=== PATIENT | female | born 1995 | race Caucasian/White ===

== ENCOUNTER → 2020-02-13 14:26 | Outpatient (CLI) | payer OTHER, SELFPAY | PROVIDERS: Visit Provider Physician Assistant | DX: J02.9 Acute pharyngitis, unspecified (principal) | CPT/HCPCS: 87070 ==

== ENCOUNTER → 2020-03-03 16:22 | Outpatient (CLI) | payer OTHER, SELFPAY ==
--- NOTE | 2020-03-03 16:25 | DI.RAD.S_ITS ---
PROCEDURE: XR CHEST 2V INDICATIONS: cough TECHNIQUE: 2 views of the chest were acquired. COMPARISON: None. FINDINGS: Surgical changes and devices: None. Lungs and pleura: Lungs are clear. No pleural effusions or pneumothorax. Mediastinum: Mediastinal contours are normal. Heart size is normal. Bones and chest wall: No suspicious bony abnormalities. Soft tissues appear unremarkable. IMPRESSION: No acute cardiopulmonary disease. Dictated by: Markus Bailey [facility] Interpreted: Jordyn Dumont MD on 03/03/2020 at 17:07 Approved by: Jordyn Dumont M.D. on 03/03/2020 at 18:05
== END ==
PROVIDERS: PCP Registered Nurse; Referring Provider Physician Assistant; Visit Provider Physician Assistant
DX: R05 Cough (principal)
CPT/HCPCS: 71046

== ENCOUNTER → 2020-11-10 17:04 | Outpatient (CLI) | payer OTHER, SELFPAY ==
--- NOTE | 2020-11-10 17:06 | DI.RAD.S_ITS ---
PROCEDURE: XR LUMBAR SPINE 2-3V INDICATIONS: lower back pain TECHNIQUE: 3 views of the lumbar spine were acquired. COMPARISON: None. FINDINGS: Bones: 5 [id number] vertebrae are present. There is normal bony alignment. No vertebral body compression fractures. No suspicious bony lesions. The disc heights are well preserved. Soft tissues: Overlying bowel gas pattern is normal. No suspicious soft tissue calcifications. IMPRESSION: Unremarkable plain film study. Dictated by: Ray Dobbins M.D. on 11/10/2020 at 17:16 Approved by: Ray Dobbins M.D. on 11/10/2020 at 17:16
[2020-11-10 17:43] LABS: Add Manual Diff / Slide Review NO; Basophils Absolute Auto 100 /uL (0-100); Basophils Percent Auto 1.1 % (0-2); Eosinophils Absolute Auto 300 /uL (0-450); Eosinophils Percent Auto 3.9 % (2-4); Hematocrit 40.4 % (36-46); Hemoglobin 13.7 g/dL (12.0-16.0); Lymphocytes Absolute Auto 2500 /uL (1100-4500); Lymphocytes Percent Auto 32.2 % (25-40); Mean Corpuscular HGB Conc 33.9 % (30-36); Mean Corpuscular Hemoglobin 30.2 PG (26-34); Mean Corpuscular Volume 89.2 fL (80-100); Monocytes Absolute Auto 600 /uL (0-900); Monocytes Percent Auto 7.8 % (3-14); Neutrophils Absolute Auto 4300 /uL (1500-7000); Platelet Count 291 X10^3/uL (150-400); Red Blood Cell Count 4.54 X10^6/uL (4.0-5.2); Red Cell Distribution Width 12.9 % (11.6-14.8); White Blood Cell Count 7.8 X10^3/uL (4.5-11.0)
[2020-11-10 18:01] LABS: Alanine Aminotransferase 14 IU/L (<35); Albumin 4.2 g/dL (3.5-5.0); Albumin Globulin Ratio 1.4 (1.0-2.8); Alkaline Phosphatase 66 U/L (38-126); Aspartate Aminotransferase 18 IU/L (14-36); BUN Creatinine Ratio 16.4 (6-22); Bilirubin Total 0.4 mg/dL (0.2-1.3); Blood Urea Nitrogen 10 mg/dL (7-17); Calcium 9.3 mg/dL (8.4-10.2); Carbon Dioxide 25 mmol/L (22-32); Chloride 108 mmol/L (98-107); Estimated Glomerular Filt Rate > 60.0 mL/min (>60); Globulin 2.9 g/dL (1.7-4.1); Glucose 92 mg/dL (70-100); HEMOLYSIS < 15 (0-50); Potassium 4.6 mmol/L (3.4-5.1); Sodium 141 mmol/L (137-145); Total Protein 7.1 g/dL (6.3-8.2)
[2020-11-10 21:32] LABS: HIV 1 & 2 Ab/Ag 4th Gen Combo NEGATIVE (NEGATIVE)
[2020-11-11 04:37] LABS: HBsAg Screen Negative (Negative); Hepatitis A Antibody IgM Negative (Negative); Hepatitis B Core Antibody IgM Negative (Negative); Hepatitis C Antibody <0.1 s/co ratio (0.0-0.9)
== END ==
PROVIDERS: PCP Registered Nurse; Referring Provider Registered Nurse; Visit Provider Registered Nurse
DX: Z77.21 Contact with and (suspected) exposure to potentially hazardous body fluids (principal)
CPT/HCPCS: 36415; 72100; 80053; 80074; 85025; 87389

== ENCOUNTER → 2020-11-16 12:11 | Outpatient (CLI) | payer OTHER, SELFPAY ==
--- NOTE | 2020-11-16 12:13 | DI.US.S_ITS ---
PROCEDURE: US PELVIC COMPLETE INDICATIONS: Heavy painful menses/possible endometriosis TECHNIQUE: Real-time scanning was performed of the pelvic organs, with image documentation. Additional endovaginal scanning was necessary due to incomplete visualization of the adnexal and endometrial structures by transabdominal scanning. COMPARISON: None. FINDINGS: Uterus: Uterus is normal in size at 4.6 x 3.2 x 3.9 cm. The endometrium measures 4 mm in combined thickness. Ovaries: The right ovary measures 2.9 x 3.6 x 2.5 cm. The left ovary measures 2.2 x 3.5 x 2.3 cm. The ovaries have a normal sonographic appearance. No adnexal masses are seen. Other: No pathologic free abdominal or pelvic fluid. IMPRESSION: Pelvic ultrasound within normal limits. Dictated by: Ray Dobbins M.D. on 11/16/2020 at 12:51 Approved by: Ray Dobbins M.D. on 11/16/2020 at 12:52
== END ==
PROVIDERS: PCP Registered Nurse; Referring Provider Registered Nurse; Visit Provider Registered Nurse
DX: N92.0 Excessive and frequent menstruation with regular cycle (principal)
CPT/HCPCS: 76830; 76856

== ENCOUNTER → 2022-10-14 11:26 | Outpatient (CLI) | payer OTHER, SELFPAY ==
[2022-10-14 13:08] LABS: Add Manual Diff / Slide Review NO; Basophils Absolute Auto 100 /uL (0-100); Basophils Percent Auto 1.1 % (0-2); Eosinophils Absolute Auto 200 /uL (0-450); Eosinophils Percent Auto 4.1 % (2-4); Hematocrit 40.4 % (36-46); Hemoglobin 13.4 g/dL (12.0-16.0); Lymphocytes Absolute Auto 1800 /uL (1100-4500); Lymphocytes Percent Auto 29.7 % (25-40); Mean Corpuscular HGB Conc 33.3 % (30-36); Mean Corpuscular Hemoglobin 29.4 PG (26-34); Mean Corpuscular Volume 88.4 fL (80-100); Monocytes Absolute Auto 400 /uL (0-900); Monocytes Percent Auto 6.4 % (3-14); Neutrophils Absolute Auto 3500 /uL (1500-7000); Neutrophils Percent Auto 58.7 % (50-75); Platelet Count 304 X10^3/uL (150-400); Red Blood Cell Count 4.57 X10^6/uL (4.0-5.2); Red Cell Distribution Width 13.1 % (11.6-14.8)
[2022-10-14 13:42] LABS: Alanine Aminotransferase 18 IU/L (<35); Albumin 4.1 g/dL (3.5-5.0); Albumin Globulin Ratio 1.5 (1.0-2.8); Alkaline Phosphatase 70 U/L (38-126); Aspartate Aminotransferase 18 IU/L (14-36); BUN Creatinine Ratio 11.5 (6-22); Bilirubin Total 0.8 mg/dL (0.2-1.3); Blood Urea Nitrogen 7 mg/dL (7-17); Calcium 8.8 mg/dL (8.4-10.2); Carbon Dioxide 26 mmol/L (22-32); Chloride 105 mmol/L (98-107); Estimated Glomerular Filt Rate > 60 mL/min (>60); Globulin 2.7 g/dL (1.7-4.1); Glucose 84 mg/dL (70-100); HEMOLYSIS < 15 (0-50); Lipase 36 U/L (23-300); Potassium 4.3 mmol/L (3.4-5.1); Sodium 141 mmol/L (137-145); Total Protein 6.8 g/dL (6.3-8.2)
== END ==
PROVIDERS: PCP Family Medicine; Referring Provider Family Medicine; Visit Provider Family Medicine
DX: R14.0 Abdominal distension (gaseous) (principal); R19.7 Diarrhea, unspecified
CPT/HCPCS: 36415; 80053; 83690; 85025

== ENCOUNTER → 2022-12-23 09:09 | Outpatient (CLI) | payer OTHER, SELFPAY ==
--- NOTE | 2022-12-23 09:11 | DI.RAD.S_ITS ---
PROCEDURE: XR SHOULDER RT MIN 2V INDICATIONS: pain, previous rotator cuff repair TECHNIQUE: 3 views of the shoulder were acquired. COMPARISON: None. FINDINGS: Bones: No fractures or dislocations. No suspicious bony lesions. Visualized ribs appear intact. Soft tissues: No suspicious soft tissue calcifications. IMPRESSION: Unremarkable right shoulder radiographs Approved by: Jason Auguste M.D. on 12/23/2022 at 11:30
[2022-12-23 11:19] LABS: TSH w/ Reflex to FT4 0.48 uIU/mL (0.47-4.68)
== END ==
PROVIDERS: PCP Family Medicine; Referring Provider Family Medicine; Visit Provider Family Medicine
DX: M25.511 Pain in right shoulder (principal); R53.83 Other fatigue
CPT/HCPCS: 36415; 73030; 84443

== ENCOUNTER → 2023-06-19 07:54 | Outpatient (CLI) | payer OTHER, SELFPAY ==
--- NOTE | 2023-06-19 07:55 | DI.NM.S_ITS ---
PROCEDURE: NM EXERCISE TREADMILL NON NUC COMPARISON: None INDICATIONS: Chest pain FINDINGS: Rest ECG sinus rhythm. Clarence protocol 10:03, maximum heart rate 195 bpm (105% peak predicted), maximum blood pressure 155/80, 12.8 METS, CE 0%. Exercise ECG sinus tachycardia, no ST segment changes or arrhythmias. The patient did not complain of exercise-induced chest discomfort. IMPRESSION: Low risk study. No evidence of exercise-induced ischemia or arrhythmia. Normal hemodynamic response. Average exercise capacity. Dictated by: Mabel Varela D.O. on 06/19/2023 at 17:25 Approved by: Mabel Varela D.O. on 06/19/2023 at 17:27
--- NOTE | 2023-06-19 10:13 | DI.US.S_ITS ---
PROCEDURE: US ABDOMEN LIMITED INDICATIONS: RUQ/EPIGASTRIC PAIN TECHNIQUE: Real-time focused scanning was performed of the abdomen, with image documentation. COMPARISON: None. FINDINGS: The liver is normal in appearance with normal echotexture without evidence for focal lesion identified. Gallbladder appears within normal limits without evidence for cholelithiasis or gallbladder wall thickening. Gallbladder wall measures 1.2 mm. Common bile duct is normal at 5 mm. Pancreas appears unremarkable. IMPRESSION: Normal pain right upper quadrant ultrasound. Dictated by: Celso Harmon M.D. on 06/19/2023 at 11:16 Approved by: Celso Harmon M.D. on 06/19/2023 at 11:18
== END ==
PROVIDERS: PCP Family Medicine; Referring Provider Family Medicine; Visit Provider Family Medicine
DX: R07.89 Other chest pain (principal); R10.9 Unspecified abdominal pain
CPT/HCPCS: 76705; 93017

== ENCOUNTER 2023-12-25 13:53 | Emergency (ER) | payer OTHER, SELFPAY ==
[2023-12-25 14:18] VITALS: BP 124/76; PULSE 91; RESP 17; TEMP 36.8; O2SAT 99; BMI 33.0
--- NOTE | 2023-12-25 18:00 | DI.RAD.S_ITS ---
PROCEDURE: XR CHEST 1V INDICATIONS: SOB TECHNIQUE: One view of the chest was acquired. COMPARISON: Located Within [facility], CR, XR CHEST 2V, 03/03/2020, 16:23. FINDINGS: Surgical changes and devices: None. Lungs and pleura: Lungs are clear. No pleural effusions or pneumothorax. Mediastinum: Mediastinal contours appear normal. Heart size is normal. Bones and chest wall: No suspicious bony lesions. Overlying soft tissues appear unremarkable. IMPRESSION: No acute cardiopulmonary abnormality is seen. Approved by: Wendy Blake M.D.,Ph.D. on 12/25/2023 at 21:25
[2023-12-25 18:42] VITALS: BP 126/76; PULSE 96; TEMP 37.4; O2SAT 99
--- NOTE | 2023-12-25 18:42 | ED.GENADULT ---
HPI - General Adult General Chief complaint: Shortness of Breath/Dyspnea Stated complaint: lump on throat, sob, sent by [facility] Time Seen by Provider: 12/25/23 17:59 Source: patient Mode of arrival: Ambulatory History of Present Illness HPI narrative: 28-year-old female who was sent from the walk-in clinic for evaluation of a lump in her throat that has been present for the past couple days. Stating that it is causing her to have some shortness of breath, painful swallowing. She does have history of asthma but does not feel like this is related to that. No fevers. No sore throat. She has had multiple other symptoms to include changes in her weight and cold and hot intolerance. She has an appointment with her primary doctor within the next 48 hours. Related Data Previous Rx's Medication Instructions Recorded sodium,potassium,mag sulfates 17.5 See Rx Instructions PO .COMPLEX 06/28/23 gram-3.13 gram-1.6 gram oral soln #354 mL (Suprep Bowel Prep Kit) Allergies Allergy/AdvReac Type Severity Reaction Status Date / Time codeine Allergy throat Verified 12/25/23 14:17 swelling morphine Allergy swelling Verified 12/25/23 14:17 of the throat Penicillins Allergy reaction Verified 12/25/23 14:17 as a baby, unsure Review of Systems Review of Systems ROS Unobtainable: All systems reviewed & are unremarkable except as noted in HPI and below Patient History Medical History Dysmenorrhea Lower back pain Social History Smoking Status: Never smoker Smoking Status: Never smoker Substance Use Type: does not use Exam Initial Vital Signs Initial Vital Signs: Vital Signs Temperature 98.3 F 12/25/23 14:18 Pulse Rate 91 H 12/25/23 14:18 Respiratory Rate 17 12/25/23 14:18 Blood Pressure 124/76 12/25/23 14:18 Pulse Oximetry 99 12/25/23 14:18 Oxygen Delivery Method Room Air 12/25/23 14:18 Const General: cooperative, comfortable and No ill appearing HENMT Head: normal to inspection and normocephalic Neck Thyroid: mass on the right on the right Lymphatic: No lymphadenopathy Resp Effort & Inspection: normal respiratory effort Auscultation: clear to auscultation bilaterally GI Inspection: normal to inspection Skin General: no rashes or lesions noted Neuro General: patient alert, patient awake and moves all extremities Extrem General: capillary refill normal Course Orders Ordered: ED Orders 12/25/23 18:00 XR chest 1V Stat 12/25/23 18:29 Complete Blood Count AUTO DIFF Stat Comprehensive Metabolic Panel Stat Free T3, Triiodothyronine Free Stat Free T4, Direct Thyroxine Stat Lipase Stat Thyroid Stimulating Hormone Stat 12/25/23 19:01 Strep Grp A by PCR Rapid Stat Throat Culture Stat Vital Signs Vital signs: Vital Signs - 8 hr 12/25/23 18:42 12/25/23 18:44 12/25/23 18:44 Temperature 99.3 F Pulse Rate 96 H 91 H Blood Pressure 126/76 126/76 Pulse Oximetry 99 99 12/25/23 20:22 12/25/23 20:23 12/25/23 20:24 Temperature Pulse Rate 83 Blood Pressure 113/71 Pulse Oximetry 98 98 Medical Decision Making Lab Data Lab results reviewed: Yes I reviewed the patient's lab results. 12/25/23 18:29 12/25/23 18:29 Labs: Lab Results 12/25/23 12/25/23 Range/Units 18:29 19:01 WBC 11.4 H (4.5-11.0) X10^3/uL RBC 4.89 (4.0-5.2) X10^6/uL Hgb 14.4 (12.0-16.0) g/dL Hct 42.6 (36-46) % MCV 87.1 (80-100) fL MCH 29.5 (26-34) PG MCHC 33.9 (30-36) % RDW 12.9 (11.6-14.8) % Plt Count 333 (150-400) X10^3/uL Neut % (Auto) 61.8 (50-75) % Lymph % (Auto) 28.7 (25-40) % [place] % (Auto) 6.8 (3-14) % Eos % (Auto) 1.6 L (2-4) % Baso % (Auto) 1.1 (0-2) % Neut # (Auto) 7100 H (7735-2368) /uL Lymph # (Auto) 3300 (4101-6820) /uL [place] # (Auto) 800 (0-900) /uL Eos # (Auto) 200 (0-450) /uL Baso # (Auto) 100 (0-100) /uL Sodium 140 (137-145) mmol/L Potassium 4.0 (3.4-5.1) mmol/L Chloride 106 (98-107) mmol/L Carbon Dioxide 26 (22-32) mmol/L BUN 15 (7-17) mg/dL Creatinine 0.69 (0.52-1.04) mg/dL Estimated GFR > 60 (>60) mL/min BUN/Creatinine Ratio 21.7 (6-22) Glucose 96 (70-100) mg/dL Calcium 9.2 (8.4-10.2) mg/dL Total Bilirubin 0.9 (0.2-1.3) mg/dL AST 21 (14-36) IU/L ALT 16 (<35) IU/L Alkaline Phosphatase 67 (38-126) U/L Total Protein 7.7 (6.3-8.2) g/dL Albumin 4.6 (3.5-5.0) g/dL Globulin 3.1 (1.7-4.1) g/dL Albumin/Globulin Ratio 1.5 (1.0-2.8) Lipase 44 (23-300) U/L TSH 1.42 (0.47-4.68) uIU/mL Free T4 1.01 (0.78-2.19) ng/dL Free T3 3.92 (2.77-5.27) pg/mL Group A Strep (PCR) Negative (Negative) Imaging Data Chest x-ray: Radiologist's Impression: PROCEDURE: XR CHEST 1V INDICATIONS: SOB TECHNIQUE: One view of the chest was acquired. COMPARISON: [facility], , XR CHEST 2V, 03/03/2020, 16:23. FINDINGS: Surgical changes and devices: None. Lungs and pleura: Lungs are clear. No pleural effusions or pneumothorax. Mediastinum: Mediastinal contours appear normal. Heart size is normal. Bones and chest wall: No suspicious bony lesions. Overlying soft tissues appear unremarkable. IMPRESSION: No acute cardiopulmonary abnormality is seen. MDM Narrative Medical decision making narrative: Patient does have a palpable tender mass in the right side of the neck at the level of the thyroid. Her thyroid studies are unremarkable. She was afebrile. Not hypoxic. Not tachypneic. Lungs are clear. Tolerating oral secretions. The rest of her labs are unremarkable. This is potentially a lymph node although a thyroid nodule/cyst is also a possibility. Patient would probably benefit from further imaging studies however this does not need to occur emergently. Patient does have a follow-up with her primary care doctor within the next 24 hours. I advised that she talk with her primary doctor about outpatient ultrasound for further evaluation. There was no indication for admission to the hospital. No indication for antibiotics. Discharge Plan Departure Patient Disposition: Home Clinical Impression: Palpable mass of neck Activity Restrictions/Additional Instructions: Continue to take all of your medications as directed. I do recommend that you keep your scheduled appointment with your primary doctor tomorrow. Return to the emergency department for new symptoms. Prescriptions: No Action sodium,potassium,mag sulfates [Suprep Bowel Prep Kit] 17.5-3.13-1.6 gram recon soln See Rx Instructions PO .COMPLEX Qty: 354 0RF Rx Instructions: take as directed by Physician Referrals: July Cooley DO [Primary Care Provider] - Stand Alone Forms: Patient Portal/API
[2023-12-25 18:44] VITALS: BP 126/76; PULSE 91; O2SAT 99
[2023-12-25 18:49] LABS: Add Manual Diff / Slide Review NO; Basophils Absolute Auto 100 /uL (0-100); Basophils Percent Auto 1.1 % (0-2); Eosinophils Absolute Auto 200 /uL (0-450); Eosinophils Percent Auto 1.6 % (2-4); Hematocrit 42.6 % (36-46); Hemoglobin 14.4 g/dL (12.0-16.0); Lymphocytes Absolute Auto 3300 /uL (1100-4500); Lymphocytes Percent Auto 28.7 % (25-40); Mean Corpuscular HGB Conc 33.9 % (30-36); Mean Corpuscular Hemoglobin 29.5 PG (26-34); Mean Corpuscular Volume 87.1 fL (80-100); Monocytes Absolute Auto 800 /uL (0-900); Monocytes Percent Auto 6.8 % (3-14); Neutrophils Absolute Auto 7100 /uL (1500-7000); Neutrophils Percent Auto 61.8 % (50-75); Platelet Count 333 X10^3/uL (150-400); Red Blood Cell Count 4.89 X10^6/uL (4.0-5.2); Red Cell Distribution Width 12.9 % (11.6-14.8); White Blood Cell Count 11.4 X10^3/uL (4.5-11.0)
[2023-12-25 19:01] LABS: Alanine Aminotransferase 16 IU/L (<35); Albumin 4.6 g/dL (3.5-5.0); Albumin Globulin Ratio 1.5 (1.0-2.8); Alkaline Phosphatase 67 U/L (38-126); Aspartate Aminotransferase 21 IU/L (14-36); BUN Creatinine Ratio 21.7 (6-22); Bilirubin Total 0.9 mg/dL (0.2-1.3); Blood Urea Nitrogen 15 mg/dL (7-17); Calcium 9.2 mg/dL (8.4-10.2); Carbon Dioxide 26 mmol/L (22-32); Chloride 106 mmol/L (98-107); Estimated Glomerular Filt Rate > 60 mL/min (>60); Globulin 3.1 g/dL (1.7-4.1); Glucose 96 mg/dL (70-100); HEMOLYSIS < 15 (0-50); Lipase 44 U/L (23-300); Sodium 140 mmol/L (137-145); Total Protein 7.7 g/dL (6.3-8.2)
[2023-12-25 19:18] LABS: Free T3, Triiodothyronine Free 3.92 pg/mL (2.77-5.27); Free T4, Direct Thyroxine 1.01 ng/dL (0.78-2.19)
[2023-12-25 19:32] LABS: Thyroid Stimulating Hormone 1.42 uIU/mL (0.47-4.68)
[2023-12-25 19:38] LABS: Strep Grp A by PCR Rapid Negative (Negative)
[2023-12-25 20:22] VITALS: PULSE 83; O2SAT 98
[2023-12-25 20:23] VITALS: O2SAT 98
[2023-12-25 20:24] VITALS: BP 113/71
== END 2023-12-25 20:29 | disposition home or self-care (01) ==
PROVIDERS: Emergency Provider Emergency Medicine; PCP Family Medicine
DX: R22.1 Localized swelling, mass and lump, neck (principal)
CPT/HCPCS: 36415; 71045; 80053; 83690; 84439; 84443; 84481; 85025; 87070; 87651; 99283; 99284

== ENCOUNTER → 2023-12-28 13:47 | Outpatient (CLI) | payer OTHER, SELFPAY ==
--- NOTE | 2023-12-28 13:48 | DI.US.S_ITS ---
PROCEDURE: US THYROID INDICATIONS: Mass of right lobe of thyroid; difficulty swallowing TECHNIQUE: Real-time scanning was performed of the thyroid gland, with image documentation. COMPARISON: None. FINDINGS: Thyroid: Right lobe measures 6.0 x 2.8 x 3.0 cm. Left lobe measures 6.2 x 1.7 x 1.5 cm. Isthmus is 0.4 cm thick. Echotexture is heterogeneous. Nodule number: 1 Location: Right mid to inferior lobe Size: 3.3 x 2.6 x 2.8 cm. Composition: Predominantly cystic Echogenicity: Anechoic Shape: wider than tall. Margins: Smooth Echogenic foci: None Total points: 1 ACR TI-RADS category: Not suspicious IMPRESSION: A 3.3 cm right thyroid lobe cyst. No fine-needle aspiration recommended. ACR TI-RADS definitions and recommendations: TI-RADS 1 (benign): 0 points. FNA not needed. TI-RADS 2 (not suspicious): 2 points. FNA not needed. TI-RADS 3 (mildly suspicious): 3 points. * FNA if 2.5 cm or larger, follow up if 1.5 cm or larger (at 1, 3, and 5 years). TI-RADS 4 (moderately suspicious): 4-6 points. * FNA if 1.5 cm or larger, follow up if 1 cm or larger (at 1, 2, 3, and 5 years). TI-RADS 5 (highly suspicious): 7 points or more. * FNA if 1 cm or larger, follow up if 0.5 cm or larger (every year for 5 years). Dictated by: Leighton Chapa M.D. on 12/28/2023 at 17:44 Approved by: Leighton Chapa M.D. on 12/28/2023 at 17:48
== END ==
PROVIDERS: PCP Family Medicine; Referring Provider Physician Assistant; Visit Provider Physician Assistant
DX: E04.1 Nontoxic single thyroid nodule (principal)
CPT/HCPCS: 76536

== ENCOUNTER 2024-01-03 14:04 | Emergency (ER) | payer OTHER, SELFPAY ==
[2024-01-03 14:10] VITALS: BP 146/84; PULSE 86; RESP 16; TEMP 36.7; O2SAT 98; BMI 34.7
[2024-01-03 16:32] VITALS: BP 120/79; PULSE 86; O2SAT 100
[2024-01-03 17:31] LABS: Add Manual Diff / Slide Review NO; Basophils Absolute Auto 100 /uL (0-100); Basophils Percent Auto 1.4 % (0-2); Eosinophils Absolute Auto 100 /uL (0-450); Hematocrit 40.6 % (36-46); Hemoglobin 13.9 g/dL (12.0-16.0); Lymphocytes Absolute Auto 2300 /uL (1100-4500); Lymphocytes Percent Auto 22.4 % (25-40); Mean Corpuscular HGB Conc 34.2 % (30-36); Mean Corpuscular Hemoglobin 29.7 PG (26-34); Mean Corpuscular Volume 86.9 fL (80-100); Monocytes Absolute Auto 600 /uL (0-900); Monocytes Percent Auto 5.8 % (3-14); Neutrophils Absolute Auto 7100 /uL (1500-7000); Neutrophils Percent Auto 69.4 % (50-75); Platelet Count 302 X10^3/uL (150-400); Red Blood Cell Count 4.67 X10^6/uL (4.0-5.2); Red Cell Distribution Width 13.4 % (11.6-14.8); White Blood Cell Count 10.3 X10^3/uL (4.5-11.0)
[2024-01-03 17:36] LABS: Alanine Aminotransferase 14 IU/L (<35); Albumin 4.6 g/dL (3.5-5.0); Albumin Globulin Ratio 1.5 (1.0-2.8); Alkaline Phosphatase 71 U/L (38-126); Aspartate Aminotransferase 19 IU/L (14-36); BUN Creatinine Ratio 17.2 (6-22); Bilirubin Total 1.2 mg/dL (0.2-1.3); Blood Urea Nitrogen 11 mg/dL (7-17); Calcium 9.3 mg/dL (8.4-10.2); Carbon Dioxide 25 mmol/L (22-32); Chloride 108 mmol/L (98-107); Estimated Glomerular Filt Rate > 60 mL/min (>60); Globulin 3.1 g/dL (1.7-4.1); Glucose 87 mg/dL (70-100); HEMOLYSIS < 15 (0-50); Potassium 3.9 mmol/L (3.4-5.1); Sodium 139 mmol/L (137-145); Total Protein 7.7 g/dL (6.3-8.2)
[2024-01-03 18:02] VITALS: BP 112/77; PULSE 80; RESP 20; O2SAT 98
[2024-01-03 18:44] LABS: Bacteria Urine Occasional (0-1); Culture Indicated Urine Cult Not Indicated; Mucus Urine 2+ (Negative); RBC Urine 5-10/HPF (0-5/HPF); Squamous Epithelial Cell Urine 0-1 /HPF (0-5/HPF); Urine Volume 10mL (spun); WBC Urine 0-1/HPF (0-5/HPF)
--- NOTE | 2024-01-03 19:33 | ED_ITS ---
HPI - General Adult General Chief complaint: Upper Respiratory Symptoms Stated complaint: cyst on fibroid, SOB, dizziness, insomnia Time Seen by Provider: 01/03/24 16:56 Source: patient Mode of arrival: Ambulatory History of Present Illness HPI narrative: Patient is a 28-year-old female who has a known 3 cm cyst on her right thyroid. She was scheduled to have it drained later this month. For the past several days has had increase in shortness of breath, tripped on some coffee this morning, having problems with find a comfortable position to sleep, reports problems with sleeping at night. She stated that she contacted her primary doctor's office who advised that she come to the emergency department for further evaluation. Related Data Allergies Allergy/AdvReac Type Severity Reaction Status Date / Time codeine Allergy throat Verified 01/03/24 14:13 swelling morphine Allergy swelling Verified 01/03/24 14:13 of the throat Penicillins Allergy reaction Verified 01/03/24 14:13 as a baby, unsure Review of Systems ENT Ears, Nose, Mouth, and Throat: Reports system reviewed and no additional complaints, except as documented Respiratory Respiratory: Reports system reviewed and no additional complaints, except as documented Integumentary/Breasts Skin/Breast: Reports system reviewed and no additional complaints, except as documented Endocrine Endocrine: Reports system reviewed and no additional complaints, except as documented Patient History Medical History Dysmenorrhea Lower back pain Social History Smoking Status: Never smoker Smoking Status: Never smoker Substance Use Type: does not use Exam Initial Vital Signs Initial Vital Signs: Vital Signs Temperature 98.1 F 01/03/24 14:10 Pulse Rate 86 01/03/24 14:10 Respiratory Rate 16 01/03/24 14:10 Blood Pressure 146/84 H 01/03/24 14:10 Pulse Oximetry 98 01/03/24 14:10 Oxygen Delivery Method Room Air 01/03/24 14:10 HENMT Mouth: oral mucosae normal Neck Thyroid: mass on the right on the right Resp Effort & Inspection: normal respiratory effort Cardio Rate: regular rate Skin General: no rashes or lesions noted Neuro General: patient alert and patient awake Course Orders Ordered: ED Orders 01/03/24 17:11 CBC Auto Diff [Complete Blood Count AUTO DIFF] Stat CMP [Comprehensive Metabolic Panel] Stat 01/03/24 18:11 XR chest 1V Stat 01/03/24 18:27 Urine Microscopic Stat Vital Signs Vital signs: Vital Signs - 8 hr 01/03/24 18:02 01/03/24 19:41 Pulse Rate 80 88 Respiratory Rate 20 16 Blood Pressure 112/77 120/85 Pulse Oximetry 98 100 Oxygen Delivery Method Room Air Room Air Medical Decision Making Lab Data Lab results reviewed: Yes I reviewed the patient's lab results. 01/03/24 17:11 01/03/24 17:11 Labs: Lab Results 01/03/24 01/03/24 Range/Units 17:11 18:27 WBC 10.3 (4.5-11.0) X10^3/uL RBC 4.67 (4.0-5.2) X10^6/uL Hgb 13.9 (12.0-16.0) g/dL Hct 40.6 (36-46) % MCV 86.9 (80-100) fL MCH 29.7 (26-34) PG MCHC 34.2 (30-36) % RDW 13.4 (11.6-14.8) % Plt Count 302 (150-400) X10^3/uL Neut % (Auto) 69.4 (50-75) % Lymph % (Auto) 22.4 L (25-40) % [place] % (Auto) 5.8 (3-14) % Eos % (Auto) 1.0 L (2-4) % Baso % (Auto) 1.4 (0-2) % Neut # (Auto) 7100 H (5493-6996) /uL Lymph # (Auto) 2300 (6714-9941) /uL [place] # (Auto) 600 (0-900) /uL Eos # (Auto) 100 (0-450) /uL Baso # (Auto) 100 (0-100) /uL Sodium 139 (137-145) mmol/L Potassium 3.9 (3.4-5.1) mmol/L Chloride 108 H (98-107) mmol/L Carbon Dioxide 25 (22-32) mmol/L BUN 11 (7-17) mg/dL Creatinine 0.64 (0.52-1.04) mg/dL Estimated GFR > 60 (>60) mL/min BUN/Creatinine Ratio 17.2 (6-22) Glucose 87 (70-100) mg/dL Calcium 9.3 (8.4-10.2) mg/dL Total Bilirubin 1.2 (0.2-1.3) mg/dL AST 19 (14-36) IU/L ALT 14 (<35) IU/L Alkaline Phosphatase 71 (38-126) U/L Total Protein 7.7 (6.3-8.2) g/dL Albumin 4.6 (3.5-5.0) g/dL Globulin 3.1 (1.7-4.1) g/dL Albumin/Globulin Ratio 1.5 (1.0-2.8) Urine RBC 5-10/hpf H (0-5/HPF) Urine WBC 0-1/hpf (0-5/HPF) Ur Squamous Epith Cells 0-1 /hpf (0-5/HPF) Urine Bacteria Occasional (0-1) (None) Urine Mucus 2+ H (Negative) Ur Culture Indicated? Cult not indicated Vol Urine Centrifuged 10ml (spun) Point of Care Testing Test Results Negative Urine Dip Bedside Urine Glucose Negative Bedside Urine Bilirubin - Negative Bedside Urine Ketone ++ 40 Urine Specific [place] 1.025 Bedside Urine Occult Blood +++ Bedside Urine pH 6.0 Bedside Urine Protein - Negative Bedside Urine Urobilinogen - Negative Bedside Urine Nitrite - Negative Bedside Urine Leukocytes - Negative Esterase Point of care testing: Point of Care Testing Test Results Negative Urine Dip Bedside Urine Glucose Negative Bedside Urine Bilirubin - Negative Bedside Urine Ketone ++ 40 Urine Specific [place] 1.025 Bedside Urine Occult Blood +++ Bedside Urine pH 6.0 Bedside Urine Protein - Negative Bedside Urine Urobilinogen - Negative Bedside Urine Nitrite - Negative Bedside Urine Leukocytes - Negative Esterase [facility] Narrative Medical decision making narrative: No respiratory distress. Patient is hydrated. Is talking in full sentences. Is not hypoxic. Is not tachypneic. No overlying skin changes. Does have the palpable mass on the right side of the thyroid. Has a known 3 cm cyst. Not tachycardic. No further workup required from the emergency department. I do agree that a follow-up with ear nose and throat would be warranted given her symptoms. She was scheduled to have the cyst drained later this month. No imaging needed emergently from the emergency department. I did discuss this with the patient. Try to reassure the patient that there was not an emergent condition although she does require further evaluation and treatment as an outpatient. Patient seemed unhappy about this discussion. Patient can return to the emergency department at any point for re-evaluation if needed. Discharge Plan Departure Patient Disposition: Home Clinical Impression: Thyroid cyst Activity Restrictions/Additional Instructions: I do recommend that you continue to take all of your medications as directed. Contact your primary care doctor for a follow-up to see if they would like to do outpatient imaging studies were to see if they can help with moving up any referral visits. Referrals: July Cooley DO [Primary Care Provider] - Stand Alone Forms: Patient Portal/API
[2024-01-03 19:41] VITALS: BP 120/85; PULSE 88; RESP 16; O2SAT 100
== END 2024-01-03 19:43 | disposition home or self-care (01) ==
PROVIDERS: Emergency Medicine; Emergency Provider Emergency Medicine; PCP Family Medicine
DX: E04.1 Nontoxic single thyroid nodule (principal)
CPT/HCPCS: 36415; 71045; 80053; 81003; 81015; 81025; 85025; 99283

== ENCOUNTER → 2024-01-12 12:58 | Outpatient (CLI) | payer OTHER, SELFPAY ==
--- NOTE | 2024-01-12 | PATH_ITS ---
Note [facility] Accession Number: [id number] TESTS RESULT FLAG UNITS REF RANGE LAB Clinician Provided Cytology Information No. of containers..01 Other (Miscellaneous) Source: RIGHT THYROID CYST DIAGNOSIS: RIGHT THYROID CYST INADEQUATE, INSUFFICIENT CELLS FOR STUDY. [place] CATEGORY I. NONDIAGNOSTIC: CYST FLUID ONLY. THIS INTERPRETATION INCLUDES EVALUATION OF A CELL BLOCK. COMMENT: No follicles are seen, only rare (1-4) benign appearing cells are seen, some are inflammatory, and most are hemosiderin-laden macrophages. Pathologist ICD10: 01 E04.1 Clinical history: 01 RIGHT LOBE MEASURES 6.0 X 2.8 X 3.0 CM. LEFT LOBE MEASURES 6.2 X 1.7 X 1.5 CM. ISTHMUS IS 0.4 CM THICK. ECHOTEXTURE IS HETEROGENENEOUS. 3.3 CC RIGHT THYROID LOBE CYST. NO FINE-NEEDLE ASPIRATION RECOMMEND. Signed out by: Cookie Benitez MD, Pathologist NPI- [id number] Performed by: Derek Chaudhary, Tamping Machine Operator ([facility]) Gross description: 9 CC, BROWN, CLOUDY RECEIVED: FRESH IN 10 ML SYRINGE.VO /VDU 01/15/2024 0818 Local FLAG LEGEND: L-Low Normal,H-High Normal,LL-Alert Low,HH-Alert High <-Panic Low,>-Panic High,A-Abnormal,AA-Critical Abnormal Performed at: 01 =Z [address] [id number] Jose Choi MD, Performed at: [address] [facility], [place], [place] [id number] MD Jose Choi MD Phone: [phone]
--- NOTE | 2024-01-12 12:59 | DI.US.S_ITS ---
PROCEDURE: US ASPIRATION CYST COMPARISON: [facility], , US THYROID, 12/28/2023, 14:00. INDICATIONS: drain thyroid cyst FINDINGS: There is a 2.9 x 2.7 x 2.2 cm cystic mass in the inferior pole of the right thyroid lobe. The mass was aspirated and ultrasound guidance. The area for needle entry point was prepped and draped in the sterile fashion. 1% lidocaine was used for local anesthesia. A 20 gauge needle was advanced into the cystic cavity under ultrasound guidance. Approximately 9 mL black colored fluid was aspirated and sent to the laboratory for analysis. The patient tolerated procedure. There is no complication. IMPRESSION: Successfulultrasound guided cyst aspiration. Dictated by: Alexandre Atkins M.D. on 01/12/2024 at 15:45 Approved by: Alexandre Atkins M.D. on 01/12/2024 at 15:47
== END ==
LOC: US 12:59
PROVIDERS: PCP Family Medicine; Referring Provider Family Medicine; Visit Provider Family Medicine
DX: E04.1 Nontoxic single thyroid nodule (principal)
CPT/HCPCS: 10005